=== PATIENT | male | born 1960 | race Caucasian/White ===

== ENCOUNTER 2022-10-04 07:58 | Outpatient (CLI) | payer OTHER | END 2022-10-04 08:01 | disposition home or self-care (01) | LOC: LAB 07:58 | PROVIDERS: ATTEND Specialist | DX: U07.1 COVID-19 (principal); I10 Essential (primary) hypertension; K43.9 Ventral hernia without obstruction or gangrene ==

== ENCOUNTER 2022-10-07 07:15 | Outpatient (CLI) | payer OTHER | END 2022-10-07 07:27 | disposition home or self-care (01) | LOC: TOM 07:15 | PROVIDERS: ATTEND Specialist | DX: K43.9 Ventral hernia without obstruction or gangrene (principal) ==